=== PATIENT | female | born 1965 | race Caucasian/White ===

== ENCOUNTER 2023-11-27 10:03 | Outpatient (CLI) | payer OTHER ==
--- NOTE | 2023-11-27 10:53 | Sleep Patient Instructions ---
Sleep Center Visit Summary - Patient Visit Information Reason for Visit: Initial consultation - Patient Instructions Additional Instructions: You will continue with CPAP therapy with pressure set at 6 cmH2O. A supply prescription will be sent to your new CPAP supplier for your supplies. I have also put together a prescription for the travel CPAP. We encourage you to continue to try to lose weight. Please follow up with the sleep care office in 1 year. - Clinic Information Contact: [facility] [address] [place] [address] [email or web address] T: [phone]
--- NOTE | 2023-11-27 10:59 | SLEEP CARE CONSULTATION ---
Information from patient questionnaire entered by Dina Higgins. I have reviewed and concur with the information entered by Dina Higgins. This document represents the service I personally performed and the decisions made by me, Mirian Fisher ARNP. History of Present Illness Service Date and Time: 11/27/2023 1003 Reason for Visit: New patient, Previously diagnosed sleep apnea, sleep apnea on CPAP therapy Chief Complaint: reports: Other (ORDER TRAVEL CPAP) Usual bedtime: 2200 Time it takes to fall asleep: 10-30MINS Snores at night: Yes Observed to quit breathing while asleep: Yes Sleeps alone due to snoring: No Number of times waking at night: 1-2 Reasons for waking at night: reports: Bathroom Toss, Turn, or Twitch while sleeping: No Recalls having dreams: Yes Usually gets out of bed at: 0730 Feels refreshed in the morning: Yes Morning headache: No Ever fallen asleep while driving: No Prior sleep studies: Yes Additional HPI information: RUBENS LEONARDO was previously diagnosed to have very severe, AHI 60.6, obstructive sleep apnea-hypopnea syndrome as seen in PSG dated 03/02/2020 through [facility] in [place], [place] and comes in today to establish care for CPAP therapy. She would like a script to get a travel CPAP. - Parasomnia Symptoms Ever been unable to move upon waking from sleep: No Walks in sleep: No Talks in sleep: No Ever acted out dreams in sleep: No Ever felt weak in the knees when startled or emotional: No Bothered by creepy, crawly, restless sensations in legs: No Problems with memory or concentration: No CPAP Compliance Data - Data Reviewed with Patient Average duration of nightly device use: 5 hours 11 minutes Compliance rate %: 61 (76/90 days used) Current pressure setting (cmH2O): 6 Average residual AHI: 1.4 (RERA 1.6) Central apnea: 0.4 Obstructive apnea: 0.3 Hypopnea: 0.7 Average large leak: 0.1 L/min Compliance data discussion: She has an Airsense 10 Resmed machine that she obtained in 08/2020. She gets her supplies through [employer], getting supplies. She is using a [employer] Dreamwear nasal cushion mask. Subjective Missed days of use due to: reports: travel Patient concerns: denies: aerophagia, mask discomfort, air blowing in eyes, mask leak noise, condensation in mask/hose, nasal congestion, dry mouth, nose, throat, epistaxis Observed to snore while using device: No Current pressure setting perceived as: comfortable On therapy, patient: reports: sleeping better, awakening more refreshed, being more awake and alert during the day, more rested overall. denies: drowsiness while driving Initial [place] Sleepiness Scale score: 3 (10/15/23) Past Medical History Past Medical History: reports: Arthritis Social History The patient's occupation is a RE. Patient is and lives in [place]. Have you smoked in the past 12 months: No Cigarettes per day (20/pack): 5 Quit date: 1994 Alcohol use: Yes Alcohol amount and frequency: 1 GLASS PER WEEK Caffeine use: Yes Caffeine amount and frequency: 1 CUP TEA 2 TIMES A WEEK Family History Family history of sleep disordered breathing: Yes Family Hx Sleep Apnea: Father: Snoring, Sleep apnea - Untreated, Sibling: Snorin g, Sleep apnea - Treated Allergies and Home Medications Known drug allergies: No Drug allergies reviewed: Yes Home medication list reviewed: Yes (as listed) Allergy and home medication list: Allergies No Known Drug Allergies Allergy (Verified 11/23/23 13:43) Home Medications Calcium 26/Vit D3/Magnesium 15 [[id number] Complx 167Mg Cp] See Rx Instructions .ROUTE .COMPLEX 11/23/23 [History Confirmed 11/23/23] Cholecalciferol (Vitamin D3) [Vitamin D3] See Rx Instructions .ROUTE .COMPLEX 11/23/23 [History Confirmed 11/23/23] Ketoconazole 2% Cream [Nizoral 2% Cream] See Rx Instructions .ROUTE .COMPLEX 11/23/23 [History Confirmed 11/23/23] [place]-3/Dha/Epa/Dpa/Fish Oil [[place] Monopure 1300 EC Softgel] See Rx Instructions .ROUTE .COMPLEX 11/23/23 [History Confirmed 11/23/23] Review of Systems Weight gain over past 5 years: 20 Cardiovascular: denies: high blood pressure Gastrointestinal: denies: heartburn Neurological: denies: headaches Psychiatric: denies: anxiety, depression Ear/Nose/Throat: reports: wisdom teeth removed. denies: tonsillectomy Musculoskeletal: reports: joint pain Immunologic: reports: sneezing Physical Exam Vital signs obtained and entered by: DINA Cadet MA Blood Pressure: 129/93 (LEFT ARM) Cuff size: long Heart Rate: 77 O2 Saturation: 98 Height: 5 ft 8 in Weight: 206 lb 9.6 oz Body Mass Index: 31.4 BMI Classification: Obese Neck circumference: 14.75 Heart: regular rate and rhythm Lungs: clear bilaterally Impression and Plan 1. Obstructive Sleep Apnea-Hypopnea Syndrome, very severe, with fair treatment compliance and good apnea control. On CPAP therapy, the patient has better sleep quality and is more rested overall. Patient would like to have a travel CPAP because sometimes it is hard to travel with her current machine. She does try and use her machine nightly and only misses when she is traveling or if she is having sinus congestion. She would also like to transfer to a local DME supplier. She has moved back to [facility] from [place]. I will add this to the order as well. Patient's apnea severity and rationale for treatment to reduce apnea, improve sleep quality and reduce cardiovascular and cerebrovascular events was reviewed. 2. Obesity, unspecified. Currently patients BMI is 31.4. Obesity increases the risk of apnea, CPAP pressure requirements and overall health risks especially cardiovascular and diabetes. Thus patient is advised to lose weight. * Continue CPAP pressure at 6 cmH2O * Update supply prescription * Travel CPAP prescription * DME Transfer * Notify me if snoring with mask or feeling that the pressure is too much or too little * Attempt to lose weight * Call this office if any problems using CPAP * Return for follow up in 12 months, or sooner if concerns arise Continue with device pressure at (cmH2O): 6 Counseling Topics: Weight loss health impact Prescriptions: Device supplies (with DME Transfer), Other (Travel CPAP) Follow up with Sleep Care in: 1 year Visit Type: In Office Time Spent with Patient (minutes): 32 Provider Statement: I spent 100% of the Face to Face Visit with the patient with greater than 50% spent counseling the patient and coordination of care.
[2023-11-27 11:07] VITALS: BP 129/93; O2SAT 98
== END 2023-11-27 10:04 | disposition home or self-care (01) ==
LOC: SC 10:03
PROVIDERS: ATTEND Nurse Practitioner Family
DX: G47.33 Obstructive sleep apnea (adult) (pediatric) (principal); Z87.891 Personal history of nicotine dependence; E66.9 Obesity, unspecified; Z68.31 Body mass index [BMI] 31.0-31.9, adult
CPT/HCPCS: 99203; 99212